=== PATIENT | female | born 1995 | race Caucasian/White ===

== ENCOUNTER 2021-01-14 14:28 | Emergency (ER) | payer OTHER ==
[~2021-01-14] VITALS: Ht 154.9 cm; Wt 48.1 kg
[2021-01-14 15:15] LABS: BASOPHILS 0.4 % (0.0-2.0); EOSINOPHILS 5.8 % (0.0-3.0); HEMATOCRIT 36.6 % (37.0-47.0); HEMOGLOBIN 12.1 gm/dL (12.0-15.0); LYMPHOCYTES 29.2 % (24.0-44.0); MCH 30.7 pg (26.0-34.0); MCHC 33.2 g/dL (28.0-37.0); MCV 92.4 fL (80.0-100.0); MONOCYTES 7.7 % (1.0-8.0); PLATELET COUNT 251 thou/uL (150-400); POLYS 56.9 % (36.0-66.0); RBC 3.96 mil/uL (4.20-5.00); RDW 13.1 % (10.5-14.5)
[2021-01-14] MEDS ORDERED: MIDODRINE HCL 55 M1 PO (15:18)
[2021-01-14 15:20] LABS: ANION GAP 8 mmol/L (7-16); BUN 13 mg/dL (7-18); CALCIUM 8.7 mg/dL (8.5-10.1); CHLORIDE 105 mmol/L (98-107); CO2 24 mmol/L (21-32); CREATININE 0.6 mg/dL (0.6-1.0); GLUCOSE 76 mg/dL (74-106); POTASSIUM 3.5 mmol/L (3.5-5.1); SODIUM 137 mmol/L (136-145)
[2021-01-14 15:31] LABS: ALBUMIN 4.1 g/dL (3.4-5.0); SGOT 16 U/L (15-37); SGPT 19 U/L (14-59); TOTAL BILIRUBIN 0.2 mg/dL (0.2-1.0); TOTAL PROTEIN 7.5 g/dL (6.4-8.2)
[2021-01-14 16:45] VITALS: BP 95/64
--- NOTE | 2021-01-15 06:49 | EKG ---
[place] [address] [facility] [place] [address] ELECTROCARDIOGRAM REPORT Name: MICHAEL CONLEY Room #: DEP [facility]#: [id number] Admission: 01/14/21 Attend Phys: Discharge: 01/14/21 Date of : [birth year] Report #: [id number] 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 : 1995 Requested By: Gael Barros Order Number: [id number] MD: Leander Loyola Measurements Intervals [place] Rate: 89 P: 75 TN: 142 QRS: 56 QRSD: 92 T: 43 QT: 374 QTc: 456 Interpretive Statements Sinus rhythm RSR' in V1 or V2, probably normal variant Baseline wander in lead(s) II,III,aVF No previous ECG available for comparison Electronically Signed On 01-15-2021 6:49:12 CDT by Leander Loyola [email or web address] <ELECTRONICALLY SIGNED> By: Leander Loyola MD, [facility] 01/15/21 0649 [id number] 1433 Leander Loyola MD, FACC /EPI
== END 2021-01-14 16:47 | disposition home or self-care (01) ==
LOC: ER 14:28
PROVIDERS: Emergency Medicine
DX: R07.89 Other chest pain (principal); I63.9 Cerebral infarction, unspecified; Z86.73 Personal history of transient ischemic attack (TIA), and cerebral infarction without residual deficits; Z79.899 Other long term (current) drug therapy